=== PATIENT | male | born 1950 | race Caucasian/White ===

== ENCOUNTER 2020-07-10 16:35 | Emergency (ER) | payer OTHER, MEDICARE ==
[~2020-07-10] VITALS: Ht 180.3 cm; Wt 89.8 kg
[2020-07-10] MEDS ORDERED: BACITRACIN ZINC 0.9GM TP ONE (18:45)
== END 2020-07-10 20:35 | disposition home or self-care (01) ==
LOC: ER 18:10
DX: S06.0X0A Concussion without loss of consciousness, initial encounter (principal); S60.417A Abrasion of left little finger, initial encounter; W01.0XXA Fall on same level from slipping, tripping and stumbling without subsequent striking against object, initial encounter; Y93.01 Activity, walking, marching and hiking; I10 Essential (primary) hypertension; E78.5 Hyperlipidemia, unspecified; Z85.46 Personal history of malignant neoplasm of prostate
CPT/HCPCS: 70450; 72125; 99284